=== PATIENT | male | born 1955 | race Caucasian/White ===

== ENCOUNTER 2022-08-14 07:18 | Day surgery (SDC) | payer BC ==
[~2022-08-14 07:18] MED LIST: LACTATED RINGERS 1,000 ML IV SCH
[2022-08-14 07:47] VITALS: TEMP 98.1
[2022-08-14] MEDS ORDERED: LIDOCAINE 1% (10MG/ML) FOR IV START INTRADERMA ONE (07:55)
[2022-08-14] MEDS ORDERED: PROPOFOL 10 MG/ML 20 ML VIAL IV ONE (08:17)
[2022-08-14] MEDS ORDERED: LIDOCAINE 2% INJ 20 MG/ML (2 ML VIAL) ONE (08:17)
--- NOTE | 2022-08-14 08:20 | P.GSHP ---
History of Present Illness H&P Date: 08/14/22 Chief Complaint: Screening colonoscopy, history of colon polyps This 66-year-old male presents today for screening colonoscopy. Patient states he had colonoscopy prostate 10 years ago was found to have colon polyps. Past Medical History Additional Past Medical History / Comment(s): POSSIBLE UTI? History of Any Multi-Drug Resistant Organisms: None Reported Past Surgical History: Hernia Repair Past Anesthesia/Blood Transfusion Reactions: No Reported Reaction Past Psychological History: No Psychological Hx Reported Smoking Status: Former smoker Past Alcohol Use History: Rare Additional Past Alcohol Use History / Comment(s): SMOKED SINCE TEENS, QUIT 2019, 1.5PP Past Drug Use History: None Reported Medications and Allergies Home Medications Medication Instructions Recorded Confirmed Type Acetaminophen [Tylenol] 325 - 650 mg PO Q6H PRN 08/12/22 08/12/22 History [id number] 1 tab PO Q6H PRN 08/12/22 08/12/22 History [Excedrin] Cranberry Fruit Extract [Cranberry] 1 tab PO DAILY 08/12/22 08/12/22 History Allergies Allergy/AdvReac Type Severity Reaction Status Date / Time No Known Allergies Allergy Verified 08/14/22 07:40 Surgical - Exam Vital Signs Temp Pulse Resp BP Pulse Ox 98.1 F 76 16 166/104 96 08/14/22 07:45 08/14/22 07:45 08/14/22 07:45 08/14/22 07:45 08/14/22 07:45 - General well developed, well nourished, no distress - Eyes PERRL - ENT normal pinna - Neck no masses - Respiratory normal expansion - Cardiovascular Rhythm: regular - Abdomen Abdomen: soft, non tender Assessment and Plan Assessment: History of colon polyps. We'll perform screening colonoscopy.
--- NOTE | 2022-08-14 08:32 | P.OP ---
Date of Procedure: 08/14/22 Preoperative Diagnosis: Screening colonoscopy Postoperative Diagnosis: Normal colon Procedure(s) Performed: Colonoscopy Anesthesia: MAC Surgeon: Fred Lisa Pathology: none sent Condition: stable Disposition: PACU Description of Procedure: PROCEDURE: The patient was placed on the endoscopy table in the lateral position. Digital rectal examination was performed which revealed no abnormalities. The prostate was symmetrical without nodules. Flexible colonoscope was then placed in the patient's anus and passed throughout the entire colon. The ileocecal valve was visualized. The cecum, ascending, transverse, descending and sigmoid colon were normal. The rectum was normal as well. There were no masses, polyps or diverticula noted in the entire colon. SUMMARY OF FINDINGS: Normal colonoscopy.
[2022-08-14 08:39] VITALS: RESP 18
[2022-08-14 08:54] VITALS: BP 147/92; PULSE 71
== END 2022-08-14 09:13 | disposition home or self-care (01) ==
LOC: ORWHC2ENDO 07:18
PROVIDERS: ATTEND Surgery
DX: Z12.11 Encounter for screening for malignant neoplasm of colon (principal); Z86.010 Personal history of colon polyps; N39.0 Urinary tract infection, site not specified; Z87.891 Personal history of nicotine dependence; Z86.59 Personal history of other mental and behavioral disorders
CPT/HCPCS: 45378; J2704; J2001